=== PATIENT | male | born 1970 | race Caucasian/White ===

== ENCOUNTER 2024-06-15 14:42 | Outpatient (CLI) | payer OTHER ==
[2024-06-15 15:57] VITALS: PULSE 67; RESP 16; O2SAT 98
== END 2024-06-15 23:59 | disposition home or self-care (01) ==
LOC: RT 14:42
PROVIDERS: ATTEND Emergency Medicine
DX: I51.9 Heart disease, unspecified (principal); R51.9 Headache, unspecified; I26.99 Other pulmonary embolism without acute cor pulmonale
CPT/HCPCS: 94010; 94727; 94729; 94760